=== PATIENT | male | born 1975 | race African-American/Black ===

== ENCOUNTER 2017-03-30 11:16 | Emergency (ER) | payer MEDICAID ==
[~2017-03-30] VITALS: Ht 189.2 cm; Wt 130.0 kg
[2017-03-30 11:21] VITALS: BP 128/84
== END 2017-03-30 13:03 | disposition home or self-care (01) ==
LOC: ED 12:50
DX: R21 Rash and other nonspecific skin eruption (principal)
CPT/HCPCS: 99283; J7512; Q0177

== ENCOUNTER 2017-04-19 23:09 | Emergency (ER) | payer MEDICAID ==
[~2017-04-19] VITALS: Ht 190.5 cm; Wt 131.5 kg
[2017-04-19 23:11] VITALS: BP 144/85
[2017-04-20 00:22] LABS: HEMATOCRIT 42.9 % (39.2-51.8); HEMOGLOBIN 13.9 g/dL (13.7-18.0); WHITE BLOOD COUNT 6.2 x10^3/uL (3.4-10)
[2017-04-20 00:34] LABS: BLOOD UREA NITROGEN 10 mg/dL (7-18)
== END 2017-04-20 01:59 | disposition home or self-care (01) ==
LOC: ED 23:59
DX: L20.9 Atopic dermatitis, unspecified (principal); R60.0 Localized edema
CPT/HCPCS: 36415; 80048; 82040; 85025; 99284

== ENCOUNTER 2017-08-27 04:59 | Emergency (ER) | payer MEDICAID ==
[~2017-08-27] VITALS: Ht 188 cm; Wt 137.4 kg
[2017-08-27] MEDS ORDERED: SODIUM CHLORIDE FLUSH 10ML SYR IVF ONE (05:30)
[2017-08-27] MEDS ORDERED: PROCHLORPERAZINE 5 MG/ML, 2ML ONE (05:30)
[2017-08-27] MEDS ORDERED: PROCHLORPERAZINE 5 MG/ML, 2ML IVPush ONE (05:30)
[2017-08-27] MEDS ORDERED: DIPHENHYDRAMINE 50 MG/ML, 1ML ONE (05:30)
[2017-08-27] MEDS ORDERED: DIPHENHYDRAMINE 50 MG/ML, 1ML IVPush ONE (05:30)
[2017-08-27] MEDS ORDERED: SODIUM CHLORIDE 0.9% 1,000ML IVBOLUS ONE (05:30)
[2017-08-27 05:54] LABS: BASOPHILS # (AUTO) 0.01 x10^3/uL (0-0.1); BASOPHILS % (AUTO) 0 % (0-1); EOSINOPHILS # (AUTO) 0.13 x10^3/uL (0-0.4); EOSINOPHILS % (AUTO) 2 % (1-7); LYMPHOCYTES # (AUTO) 1.76 x10^3/uL (1-3.4); LYMPHOCYTES % (AUTO) 31 % (22-44); MD NO; MEAN CORPUSCULAR HEMOGLOBIN 28.2 pg (27.5-34.5); MEAN CORPUSCULAR HGB CONC 33.4 g/dL (33.2-36.2); MEAN CORPUSCULAR VOLUME 84.3 fL (81-97); MEAN PLATELET VOLUME 7.1 fL (7.4-10.4); MONOCYTES # (AUTO) 0.56 x10^3/uL (0.2-0.8); MONOCYTES % (AUTO) 10 % (2-9); NEUTROPHILS # (AUTO) 3.27 x10^3/uL (1.8-6.8); NEUTROPHILS % (AUTO) 57 % (42-75); PLATELET COUNT 397 x10^3/uL (130-400); RED BLOOD COUNT 4.86 x10^6/uL (4.38-5.82); RED CELL DISTRIBUTION WIDTH 13.4 % (9.4-14.8)
[2017-08-27 06:04] LABS: ALBUMIN 3.6 g/dL (3.4-5.0); ANION GAP 7 mmol/L (5-15); CALCIUM 8.9 mg/dL (8.5-10.1); CHLORIDE 106 mmol/L (98-107); CREATININE 0.93 mg/dL (0.7-1.3)
[2017-08-27 08:10] VITALS: BP 115/88
== END 2017-08-27 08:17 | disposition home or self-care (01) ==
LOC: ED 05:49
DX: R51 Headache (principal)
CPT/HCPCS: 36415; 70450; 80048; 82040; 85025; 96361; 96374; 96375; 99285; J0780; J1200; J7030